=== PATIENT | male | born 1975 | race African-American/Black ===

== ENCOUNTER 2018-04-02 20:30 | Emergency (ER) | payer SELFPAY ==
[~2018-04-02] VITALS: Ht 170.2 cm; Wt 152.4 kg
[2018-04-02 21:04] VITALS: BP 205/120
[2018-04-02] MEDS ORDERED: HYDR-3164 PO (21:13)
--- NOTE | 2018-04-02 21:13 | PHYS DOC ---
Past Medical History Past Medical History: Hypertension Past Surgical History: No Surgical History Alcohol Use: None Drug Use: None Adult General Chief Complaint Chief Complaint: DENTAL PROBLEM HPI HPI Patient is a 42 year old male who presents with right upper back molars broken had dental pain for the last couple weeks. He does not have a dentist. Rates pain 10 out of 10. States been turned take Tylenol or ibuprofen. Denies fever or facial swelling. Patient is still able to eat and drink. Review of Systems Review of Systems Constitutional: Denies fever or chills [] Eyes: Denies change in visual acuity, redness, or eye pain [] HENT: Dental caries. Denies nasal congestion or sore throat [] Respiratory: Denies cough or shortness of breath [] Cardiovascular: No additional information not addressed in HPI [] GI: Denies abdominal pain, nausea, vomiting, bloody stools or diarrhea [] : Denies dysuria or hematuria [] Musculoskeletal: Denies back pain or joint pain [] Integument: Denies rash or skin lesions [] Neurologic: Denies headache, focal weakness or sensory changes [] All other systems were reviewed and found to be within normal limits, except as documented in this note. Current Medications Current Medications Current Medications Medications (Trade) Dose Ordered Sig/Su Start Time Stop Time Status Last Admin Dose Admin Acetaminophen/ Hydrocodone Bitart (Lortab 5/325) 1 tab 1X ONCE 04/02/18 21:30 04/02/18 21:35 DC 04/02/18 21:32 1 TAB Allergies Allergies Allergies Coded Allergies Type Severity Reaction Last Updated Verified No Known Drug Allergies 04/02/18 No Physical Exam Physical Exam Constitutional: Well developed, well nourished, no acute distress, non-toxic appearance. [] HENT: Normocephalic, atraumatic, bilateral external ears normal, oropharynx moist, no oral exudates, nose normal. Dental caries. [] Eyes: PERRLA, EOMI, conjunctiva normal, no discharge. [] Neck: Normal range of motion, no tenderness, supple, no stridor. [] Cardiovascular:Heart rate regular rhythm, no murmur [] Lungs & Thorax: Bilateral breath sounds clear to auscultation [] Abdomen: Bowel sounds normal, soft, no tenderness, no masses, no pulsatile masses. [] Skin: Warm, dry, no erythema, no rash. [] Back: No tenderness, no CVA tenderness. [] Extremities: No tenderness, no cyanosis, no clubbing, ROM intact, no edema. [] Neurologic: Alert and oriented X 3, normal motor function, normal sensory function, no focal deficits noted. [] Psychologic: Affect normal, judgement normal, mood normal. [] Current Patient Data Vital Signs Vital Signs Date Time Temp Pulse Resp B/P (MAP) Pulse Ox O2 Delivery O2 Flow Rate FiO2 04/02/18 21:32 16 99 Room Air 04/02/18 21:04 98.3 76 205/120 (148) 98.3 EKG EKG [] Radiology/Procedures Radiology/Procedures [] Course & Med Decision Making Course & Med Decision Making Patient is a 42 year old male who presents with right upper back molars broken had dental pain for the last couple weeks. He does not have a dentist. Rates pain 10 out of 10. States been turned take Tylenol or ibuprofen. Denies fever or facial swelling. Patient is still able to eat and drink. Alert and oriented. Skin pink warm and dry. Afebrile. Denies nausea, vomiting. Rates his pain a 10 out of 10. Patient has a broken tooth on his right upper back molar. There is no gum swelling there is no facial swelling. He has got no fever. Patient is given [place] and dental resources. Dragon Disclaimer Dragon Disclaimer This electronic medical record was generated, in whole or in part, using a voice recognition dictation system. Departure Departure Impression: Primary Impression: Dental caries Disposition: 01 HOME, SELF-CARE Condition: STABLE Referrals: NO PCP (PCP) Patient Instructions: Dental Caries Additional Instructions: CALL A DENTIST IN THE MORNING. TAKE MEDICATIONS PRESCRIBED. Scripts Hydrocodone/Apap 5-325 (NORCO 5-325 TABLET) 1 Each Tablet 1 TAB PO PRN Q6HRS PRN for PAIN, #10 TAB 0 Refills Prov: MEGHANN CHRISTIAN APRN 04/02/18 MEGHANN CHRISTIAN APRN Apr 02, 2018 21:13
[2018-04-02] MEDS ORDERED: HYDROcodone/APAP 5/325MG 1 TAB TABLET PO ONE (21:30)
== END 2018-04-02 21:40 | disposition home or self-care (01) ==
LOC: ER 20:30
DX: K02.9 Dental caries, unspecified (principal); I10 Essential (primary) hypertension
CPT/HCPCS: 99283

== ENCOUNTER 2018-12-13 21:54 | Emergency (ER) | payer SELFPAY ==
[~2018-12-13 21:54] MED LIST: HYDR-3164 PO
[2018-12-13] MEDS ORDERED: HYDR-3164 PO (22:13)
[2018-12-13] MEDS ORDERED: AMOX500T PO (22:13)
--- NOTE | 2018-12-13 22:13 | PHYS DOC ---
Past Medical History Past Medical History: Hypertension (KUNAL TIJERINA APRN) Past Surgical History: No Surgical History (KUNAL TIJERINA APRN) Alcohol Use: None Drug Use: None (KUNAL TIJERINA APRN) Adult General Chief Complaint Chief Complaint: EARACHE/EAR PAIN [facility] HPI Patient is a 43 year old male with history of hypertension, who presents to the ED today complaining of moderate left lower gum dental pain as well as left ear pain began yesterday. Patient states a month ago he broke a filing from his left lower molar but has not followed up with a dentist yet. Patient states the pain is worse when eating certain foods. Denies anything specifically relieving the pain. (KUNAL TIJERINA APRN) Review of Systems Review of Systems Constitutional: Denies fever or chills [] Eyes: Denies change in visual acuity, redness, or eye pain [] HENT: Reports left lower gum pain.Denies nasal congestion or sore throat [] Respiratory: Denies cough or shortness of breath [] Cardiovascular: No additional information not addressed in HPI [] GI: Denies abdominal pain, nausea, vomiting, bloody stools or diarrhea [] : Denies dysuria or hematuria [] Musculoskeletal: Denies back pain or joint pain [] Integument: Denies rash or skin lesions [] Neurologic: Denies headache, focal weakness or sensory changes [] All other systems were reviewed and found to be within normal limits, except as documented in this note. (KUNAL TIJERINA APRN) Allergies Allergies Allergies Coded Allergies Type Severity Reaction Last Updated Verified No Known Drug Allergies 04/02/18 No (REHANA ALDANA DO) Physical Exam Physical Exam Constitutional: Morbidly obese patient, well nourished, no acute distress, non- toxic appearance. [] HENT: Normocephalic, atraumatic, bilateral external ears normal, oropharynx moist, no oral exudates, nose normal. [] Left lower molar is broken, the filling is missing Eyes: PERRLA, EOMI, conjunctiva normal, no discharge. [] Neck: Normal range of motion, no tenderness, supple, no stridor. [] Cardiovascular:Heart rate regular rhythm, no murmur [] Lungs & Thorax: Bilateral breath sounds clear to auscultation [] Abdomen: Bowel sounds normal, soft, no tenderness, no masses, no pulsatile masses. [] Skin: Warm, dry, no erythema, no rash. [] Back: No tenderness, no CVA tenderness. [] Extremities: No tenderness, no cyanosis, no clubbing, ROM intact, no edema. [] Neurologic: Alert and oriented X 3, normal motor function, normal sensory function, no focal deficits noted. [] Psychologic: Affect normal, judgement normal, mood normal. [] (KUNAL TIJERINA APRN) EKG EKG [] (KUNAL TIJERINA APRN) Radiology/Procedures Radiology/Procedures [] (KUNAL TIJERINA APRN) Course & Med Decision Making Course & Med Decision Making Pertinent Labs and Imaging studies reviewed. (See chart for details) This is a 43-year-old male patient presenting to the ED today with dental pain and left ear pain. Discharged with amoxicillin. Follow-up with a dentist in 1-2 weeks. Also encouraged to follow-up with his own PCP, BP was running in the 180s over low 100s. Has history of hypertension and he states he is compliant to his medications. (KUNAL TIJERINA APRN) Dragon Disclaimer Dragon Disclaimer This electronic medical record was generated, in whole or in part, using a voice recognition dictation system. (KUNAL TIJERINA APRN) Departure Departure Impression: Primary Impression: Otalgia, left ear Additional Impressions: Dental caries Dentalgia Disposition: 01 HOME, SELF-CARE Condition: STABLE Referrals: NO PCP (PCP) Follow-up with your dentist as well as primary care doctor in 1-2 Patient Instructions: Dental Caries, Otalgia-Brief Additional Instructions: You were evaluated in the emergency room for dental pain and ear pain. We put you on antibiotics, take them as prescribed until completed. Follow-up with your dentist as well as primary care doctor in the next 1-2 weeks. Scripts Amoxicillin (AMOXICILLIN) 500 Mg Tablet 1 TAB PO BID, #20 TAB Prov: KUNAL TIJERINA APRN 12/13/18 Hydrocodone/Apap 5-325 (NORCO 5-325 TABLET) 1 Each Tablet 1 TAB PO Q6HRS, #10 TAB Prov: KUNAL TIJERINA APRN 12/13/18 Attending Signature Attending Signature I have reviewed the PA/[employer]'s note and plan of care. I was available for consultation as needed during the patient's visit in the emergency department. I agree with the clinical impression, plan, and disposition. (REHANA ALDANA DO) Problem Qualifiers JEANETTEENMANUELKUNAL RODRIGUEZ Dec 13, 2018 22:13 REHANA ALDANA DO Dec 13, 2018 23:29
== END 2018-12-13 22:26 | disposition home or self-care (01) ==
LOC: ER 21:54
DX: K02.9 Dental caries, unspecified (principal); K08.89 Other specified disorders of teeth and supporting structures; I10 Essential (primary) hypertension
CPT/HCPCS: 99283